=== PATIENT | female | born 1965 | race Caucasian/White ===

== ENCOUNTER 2017-03-11 10:43 | Emergency (ER) | payer OTHER, SELFPAY ==
[~2017-03-11] VITALS: Ht 177.8 cm; Wt 66.5 kg
[2017-03-11] MEDS ORDERED: MECLIZINE CHEWABLE 25 MG TAB PO ONE (11:30)
[2017-03-11] MEDS ORDERED: SODIUM CHLORIDE FLUSH 10ML SYR IVF ONE (11:30)
[2017-03-11] MEDS ORDERED: ONDANSETRON 2MG/ML, 2ML IVPush ONE (11:30)
[2017-03-11] MEDS ORDERED: SODIUM CHLORIDE 0.9% 1,000ML IVBOLUS ONE (11:30)
[2017-03-11 11:48] LABS: HEMATOCRIT 38.5 % (34.6-47.8); HEMOGLOBIN 12.6 g/dL (11.7-16.4); WHITE BLOOD COUNT 5.7 x10^3/uL (3.4-10)
[2017-03-11 11:56] LABS: BLOOD UREA NITROGEN 17 mg/dL (7-18)
[2017-03-11 12:00] LABS: IS PT STATUS REG ER OR PRE ER? YES
[2017-03-11 12:24] LABS: HCG UR OBC PASS
[2017-03-11 13:41] VITALS: BP 148/89
== END 2017-03-11 13:44 | disposition home or self-care (01) ==
LOC: ED 12:08
DX: H81.10 Benign paroxysmal vertigo, unspecified ear (principal)
CPT/HCPCS: 36415; 71010; 80048; 81003; 81025; 82040; 84484; 85025; 93005; 96360; 96361; 99285; J7030

== ENCOUNTER 2020-11-17 12:02 | Emergency (ER) | payer OTHER ==
[~2020-11-17] VITALS: Ht 177.8 cm; Wt 71.7 kg
--- NOTE | 2020-11-17 12:28 | NUR ---
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
--- NOTE | 2020-11-17 12:51 | NUR ---
PT CURRENTLY TAKEN TO CT. RN ASSESSED PT, WHO REMAINS HYPERTENSIVE, PT REPORTS GRADUALLY INCREASING HTN OVER PAST WEEK WHILE MONITORING AT HOME. PT REPORTS DIZZINESS STARTING TODAY, WORSE WITH POSITION CHANGES. DENIES ROSA "PAIN" "BUT THERE IS JUST A PRESSURE THAT I KNOW IS THERE" SIDE RAILS UP, CALL LIGHT IN REACH.
[2020-11-17 13:00] LABS: ALBUMIN 4.5 g/dL (3.4-5.0); ANION GAP 4 mmol/L (5-15); CALCIUM 9.2 mg/dL (8.5-10.1); CHLORIDE 108 mmol/L (98-107)
[2020-11-17 13:05] LABS: BASOPHILS % (AUTO) 1 % (0-1); EOSINOPHILS % (AUTO) 3 % (1-7); LYMPHOCYTES % (AUTO) 23 % (22-44); MEAN CORPUSCULAR HEMOGLOBIN 31.7 pg (27.0-34.8); MEAN CORPUSCULAR HGB CONC 33.6 g/dL (32.4-35.8); MONOCYTES % (AUTO) 7 % (2-9); NEUTROPHILS % (AUTO) 66 % (42-75); PLATELET COUNT 257 x10^3/uL (130-400); RED BLOOD COUNT 4.85 x10^6/uL (3.82-5.3); RED CELL DISTRIBUTION WIDTH 13.5 % (9.6-15.2)
[2020-11-17 13:18] LABS: MD NO
[2020-11-17] MEDS ORDERED: METOPROLOL 1 MG/ML, 5ML IVPush ONE (13:33)
[2020-11-17 13:51] LABS: ALANINE AMINOTRANSFERASE 25 U/L (12-78)
[2020-11-17 13:54] LABS: ALKALINE PHOSPHATASE 96 U/L (45-117); BILIRUBIN,TOTAL 1.2 mg/dL (0.2-1.0)
[2020-11-17] MEDS ORDERED: METOPROLOL 1 MG/ML, 5ML ONE (13:59)
--- NOTE | 2020-11-17 14:05 | NUR ---
PT AMBULATES WELL TO BATHROOM INDEPENDENTLY.
[2020-11-17 14:11] LABS: TROPONIN I < 0.015 ng/mL (0.000-0.045)
--- NOTE | 2020-11-17 15:04 | NUR ---
REPORT FROM KIRSTEN MONTAGUE. ASSUMING CARE. PT TO MRI.
--- NOTE | 2020-11-17 15:05 | NUR ---
REPORT TO EDDI ALLEN.
[2020-11-17] MEDS ORDERED: GADOTERATE 7.5 MMOL/15ML SYR ONE (15:18)
--- NOTE | 2020-11-17 15:35 | NUR ---
PT BACK FROM CT. VSS. PRICE.
[2020-11-17 16:56] VITALS: BP 141/94
--- NOTE | 2020-11-17 17:25 | NUR ---
Patient/Caregiver given discharge instructions and they have confirmed that they understand the instructions. Patient ambulatory with steady gait.
== END 2020-11-17 17:26 | disposition home or self-care (01) ==
LOC: ED 13:28
DX: R51.9 Headache, unspecified (principal); I10 Essential (primary) hypertension; R42 Dizziness and giddiness; R07.9 Chest pain, unspecified
CPT/HCPCS: 36415; 70450; 70553; 71045; 80053; 84484; 85025; 93005; 96374; 99285; A9575

== ENCOUNTER 2020-11-26 15:24 | Observation (INO) | payer OTHER ==
[~2020-11-26] VITALS: Ht 177.8 cm; Wt 70.9 kg
--- NOTE | 2020-11-26 15:59 | NUR ---
PT AMBULATED TO ROOM FROM TRIAGE. PT STATED THAT SHE WAS SEEN IN ED LAST WEEK FOR HIGH BP AND WAS GIVEN A PERSCRIPTION. PT WENT TO PCP ON TUESDAY AND HER MEDICATION WAS CHANGED. TODAY, PT STARTED EXPERIENCING 7/10 CP AND SOB. PT CALLED PCP AND TOLD HER TO COME TO THE ER. PT STATED THAT PAIN IS NOW 2/10 AND DENIES ANY SOB. PT DENIES FEVER, COUGH, N/V.
[2020-11-26 16:11] LABS: BASOPHILS % (AUTO) 1 % (0-1); EOSINOPHILS % (AUTO) 3 % (1-7); LYMPHOCYTES % (AUTO) 27 % (22-44); MEAN CORPUSCULAR HEMOGLOBIN 31.8 pg (27.0-34.8); MEAN CORPUSCULAR HGB CONC 34.1 g/dL (32.4-35.8); MONOCYTES % (AUTO) 6 % (2-9); NEUTROPHILS % (AUTO) 63 % (42-75); PLATELET COUNT 240 x10^3/uL (130-400); RED BLOOD COUNT 4.54 x10^6/uL (3.82-5.3)
[2020-11-26 16:13] LABS: MD NO
[2020-11-26 16:16] LABS: ALANINE AMINOTRANSFERASE 59 U/L (12-78); ALBUMIN 4.3 g/dL (3.4-5.0); ANION GAP 6 mmol/L (5-15); CALCIUM 9.1 mg/dL (8.5-10.1); CHLORIDE 109 mmol/L (98-107); CREATININE 0.92 mg/dL (0.55-1.02)
[2020-11-26] MEDS ORDERED: ASPIRIN 81 MG TABLET CHEW ONE (16:18)
[2020-11-26 16:21] LABS: ALKALINE PHOSPHATASE 97 U/L (45-117); BILIRUBIN,TOTAL 1.3 mg/dL (0.2-1.0); TOTAL PROTEIN 7.6 g/dL (6.4-8.2); TROPONIN I < 0.015 ng/mL (0.000-0.045)
[2020-11-26] MEDS ORDERED: ASPIRIN 81 MG TABLET CHEW PO ONE (16:30)
[2020-11-26] MEDS ORDERED: SODIUM CHLORIDE FLUSH 10ML SYR IVF ONE (16:30)
[2020-11-26] MEDS ORDERED: NITROGLYCERIN SINGLE TAB 0.4 MG SL PRN (16:30)
[2020-11-26 17:30] VITALS: BP 165/100
[2020-11-26] MEDS ORDERED: DIPHENHYDRAMINE 25 MG CAPSULE PO PRN (18:00)
[2020-11-26] MEDS ORDERED: ACETAMINOPHEN 325 MG TABLET PO PRN (18:00)
[2020-11-26] MEDS ORDERED: morphine SULFATE 10 MG/ML, 1ML IVPush PRN (18:00)
[2020-11-26] MEDS ORDERED: ONDANSETRON ODT 4 MG PO PRN (18:00)
[2020-11-26] MEDS ORDERED: ENALAPRILAT 1.25 MG/ML, 2ML IVPush PRN (18:00)
[2020-11-26] MEDS ORDERED: ONDANSETRON 2MG/ML, 2ML IVPush PRN (18:00)
[2020-11-26 18:29] LABS: TROPONIN I < 0.015 ng/mL (0.000-0.045)
[2020-11-26] MEDS ORDERED: OLME20TA27 PO (18:40)
[2020-11-26 19:54] VITALS: BP 151/95
[2020-11-27 00:03] LABS: TROPONIN I < 0.015 ng/mL (0.000-0.045)
[2020-11-27 01:20] VITALS: BP 155/90
[2020-11-27 05:29] LABS: BASOPHILS % (AUTO) 1 % (0-1); EOSINOPHILS % (AUTO) 4 % (1-7); LYMPHOCYTES % (AUTO) 32 % (22-44); MEAN CORPUSCULAR HEMOGLOBIN 31.6 pg (27.0-34.8); MEAN CORPUSCULAR HGB CONC 33.7 g/dL (32.4-35.8); MONOCYTES % (AUTO) 9 % (2-9); NEUTROPHILS % (AUTO) 53 % (42-75); PLATELET COUNT 241 x10^3/uL (130-400); RED BLOOD COUNT 4.75 x10^6/uL (3.82-5.3); RED CELL DISTRIBUTION WIDTH 13.2 % (9.6-15.2)
[2020-11-27 05:35] LABS: MD NO
[2020-11-27 05:44] LABS: CHLORIDE 109 mmol/L (98-107)
[2020-11-27 05:55] LABS: ANION GAP 4 mmol/L (5-15); CHOL/HDL RATIO 2.5; CHOLESTEROL, TOTAL 198 mg/dL (140-239); CREATININE 0.95 mg/dL (0.55-1.02); HDL CHOL % 40 % (28-40); HDL CHOLESTEROL (DIRECT) 80 mg/dL (40-60); LDL CHOLESTEROL,CALCULATED 102 mg/dL (54-169); LDL/HDL RATIO 1.3 (0.5-3.0); TRIGLYCERIDES 82 mg/dL (50-200); VLDL CHOLESTEROL 16 mg/dL (0-25)
[2020-11-27] MEDS ORDERED: ASPIRIN 325 MG TABLET EC PO SCH (06:00)
[2020-11-27 07:58] VITALS: BP 162/64
[2020-11-27] MEDS ORDERED: LOSARTAN 50MG TABLET PO SCH (11:30)
== END 2020-11-27 13:37 | disposition home or self-care (01) ==
LOC: ED 15:26 → INTOOBSV 16:50 → 5SO 16:50
PROVIDERS: ADMIT Internal Medicine; ATTEND Hospitalist
DX: R07.89 Other chest pain (principal); I10 Essential (primary) hypertension; I49.3 Ventricular premature depolarization; Z79.899 Other long term (current) drug therapy
CPT/HCPCS: 36415; 71045; 80048; 80053; 80061; 84484; 85025; 93005; 93017; 99285; G0378